=== PATIENT | female | born 1950 | race Caucasian/White ===

== ENCOUNTER 2018-10-08 19:46 | Emergency (ER) | payer OTHER, BC ==
[2018-10-08 20:44] VITALS: BP 118/79; PULSE 75; TEMP 97.4; BMI 27.4
[2018-10-08] MEDS ORDERED: METOCLOPRAMIDE HCL INJECTION 10 MG/2 ML VIAL IVPB ONE (20:59)
[2018-10-08] MEDS ORDERED: ACETAMINOPHEN 1000 MG/100 ML VIAL (NON FORMULARY) IVPB ONE (21:00)
--- NOTE | 2018-10-08 21:16 | PDOC ---
History of Present Illness - General Chief Complaint: Headache Stated Complaint: FALL Time Seen by Provider: 10/08/18 20:34 History Source: Patient Exam Limitations: No Limitations - History of Present Illness Initial Comments: 68 yo F hx of chronic pain syndrome, cervical radiculopathy, hypothyroidism, peripheral neuropathy, HTN, chronic back pain, endometrial CA 2008 (in remission ), Meniere's disease presents s/p fall 2 days ago. Mentions she has fallen in past due to Meniere's disease and 2 days ago, fell while going to bathroom. Mentions feeling vertigo and a bit lightheaded, then falling, hitting forward, hitting the left side of her head. Mentions noted some blurred vision and slightly slurred speech since fall. Is c/o headache, B/L shoulder and neck pain. Patient is disabled at baseline and walks with cane; mentions has "bad knees". Denies fever, sob, cp, abd pain, n/v, bowel/bladder incontinence. 10/08/18 21:13 Past History - Past Medical History Allergies/Adverse Reactions: Allergies Allergy/AdvReac Type Severity Reaction Status Date / Time morphine Allergy Intermediate Itching Verified 10/08/18 23:48 - Suicide/Smoking/Psychosocial Hx Smoking History: Never smoked Have you smoked in the past 12 months: No Information on smoking cessation initiated: No Hx Alcohol Use: No Drug/Substance Use Hx: No Review of Systems - Review of Systems Comments:: see hpi 10/08/18 21:20 *Physical Exam - Vital Signs Last Vital Signs Temp Pulse Resp BP Pulse Ox 97.4 F L 75 19 118/79 97 10/08/18 19:50 10/08/18 19:50 10/08/18 19:50 10/08/18 19:50 10/08/18 19:50 - Physical Exam General Appearance: No: Apparent Distress HEENT: positive: CARLOS A Neck: positive: Tender, Supple, Tender midline. negative: Rigid, Rigidity, Tender lateral Respiratory/Chest: positive: Lungs Clear, Normal Breath Sounds. negative: Respiratory Distress Cardiovascular: positive: Regular Rhythm, Regular Rate, S1, S2. negative: Murmur Gastrointestinal/Abdominal: positive: Normal Bowel Sounds, Soft. negative: Tender, Distended, Guarding, Rebound Extremity: positive: Normal Inspection. 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 negative: Facial Droop, Numbness, Sensory Deficit, Confused, Disoriented Moderate Sedation - Procedure Monitoring Vital Signs: Procedure Monitoring Vital Signs Temperature 97.4 F L 10/08/18 19:50 Pulse Rate 75 10/08/18 19:50 Respiratory Rate 19 10/08/18 19:50 Blood Pressure 118/79 10/08/18 19:50 O2 Sat by Pulse Oximetry (%) 97 10/08/18 19:50 ED Treatment Course - LABORATORY CBC & Chemistry Diagram: 10/08/18 22:08 10/08/18 22:08 - RADIOLOGY Radiology Studies Ordered: Category Date Time Status CERVICAL SPINE CT W/O CONTR [CT] Stat CT Scan 10/08/18 21:[address] WITHOUT CONTRAST [CT] Stat CT Scan 10/08/18 20:58 Ordered Medical Decision Making - Medical Decision Making 68 yo F hx of chronic pain syndrome, cervical radiculopathy, hypothyroidism, peripheral neuropathy, HTN, chronic back pain, endometrial CA 2007 (in remission ), Meniere's disease presents s/p fall 2 days ago, possibly related to her Meniere's disease. Patient is not on any blood thinners. Consider ACS, infection (given age), metabolic abnormality. Plan: CBC, CMP, trop, UA, CT head, CT c-spine, Tylenol, Reglan 10/08/18 21:22 Labs reviewed and unremarkable EKG shows NSR at 70 bpm, no ectopy, TWI lead III, nonspecific T wave flattening in lateral leads UA neg CT head and C-spine neg Patient appears well and feels better Advised to f/u with her PCP for further care 10/09/18 01:09 *DC/Admit/Observation/Transfer Diagnosis at time of Disposition: Syncope Qualifiers: Syncope type: unspecified Qualified Code(s): R55 - Syncope and collapse Fall Qualifiers: Encounter type: initial encounter Qualified Code(s): W19.XXXA - Unspecified fall, initial encounter - Discharge Dispostion Disposition: HOME Condition at time of disposition: Good Decision to Admit order: No - Referrals Referrals: Annabi,Iyad, MD [Primary Care Provider] - 3 days - Patient Instructions Printed Discharge Instructions: DI for Syncope in Adults (Fainting), DI for Meniere's Disease Additional Instructions: Thank you for choosing [facility]. It was a pleasure taking care of you. You were seen here after fall with headache. Your labs were unremarkable You had CT of head and c-spine done; there was no evidence of any bleed or fracture Please be sure to follow-up with your PCP for further care. Return to the Emergency Department if your symptoms worsen or persist, you have fever, shortness of breath, chest pain, severe abdominal pain, vomiting, dizziness, weakness of extremities (arms and/or legs), changes in vision or walking or other concerning symptoms. - Post Discharge Activity
[2018-10-08] MEDS ORDERED: ACETAMINOPHEN INJECTION 100 ML IVPB ONE (21:42)
[2018-10-08] MEDS ORDERED: METOCLOPRAMIDE HCL INJECTION 10 MG/2 ML VIAL ONE (21:42)
[2018-10-08 22:19] LABS: BASO % 0.5 % (0-2.0); EOS % 2.2 % (0-4.5); HEMATOCRIT 37.6 % (32.4-45.2); LYMPH % 22.1 % (8-40); MCH 28.6 pg (25.7-33.7); MCHC 34.7 g/dl (32.0-36.0); MEAN CELL VOLUME 82.3 fl (80-96); MEAN PLT VOLUME 7.5 fl (7.5-11.1); MONO % 6.2 % (3.8-10.2); PLATELET COUNT 279 K/MM3 (134-434); RBC 4.56 M/mm3 (3.60-5.2); RDW 12.8 % (11.6-15.6); WHITE BLOOD COUNT 8.5 K/mm3 (4.0-10.0)
[2018-10-08 22:41] LABS: ALBUMIN 3.6 g/dl (3.4-5.0); ALK PHOS 77 U/L (45-117); ANION GAP 8 MMOL/L (8-16); BILIRUBIN,TOTAL 0.3 mg/dL (0.2-1); BLOOD UREA NITROGEN 21 mg/dL (7-18); CALCIUM 8.5 mg/dL (8.5-10.1); CHLORIDE 97 mmol/L (98-107); CO2 32 mmol/L (21-32); CREATININE 1.2 mg/dL (0.55-1.3); GLUCOSE,RANDOM 146 mg/dL (74-106); POTASSIUM 3.5 mmol/L (3.5-5.1); SGOT/AST 9 U/L (15-37); SGPT/ALT 19 U/L (13-61); SODIUM 136 mmol/L (136-145); TOT PROT 7.3 g/dl (6.4-8.2)
[2018-10-09 00:56] LABS: URINE APPEARANCE CLEAR; URINE BILIRUBIN NEGATIVE (<2.0 mg/dL); URINE COLOR STRAW; URINE GLUCOSE (UA) NEGATIVE (NEGATIVE); URINE KETONE NEGATIVE (NEGATIVE); URINE LEUK ESTERASE TRACE (NEGATIVE); URINE NITRITE NEGATIVE (NEGATIVE); URINE PROTEIN NEGATIVE (NEGATIVE); URINE UROBILINOGEN NEGATIVE mg/dL (0.2-1.0)
[2018-10-09 00:58] LABS: EPI CELLS RARE /HPF (FEW); URINE BACTERIA RARE /hpf (NONE SEEN)
--- NOTE | 2018-10-09 11:58 | EKG ---
Test Reason : Blood Pressure : / mmHG Vent. Rate : 070 BPM Atrial Rate : 070 BPM P-R Int : 194 ms QRS Dur : 104 ms QT Int : 452 ms P-R-T Axes : 011 -28 -12 degrees QTc Int : 488 ms NORMAL SINUS RHYTHM INCOMPLETE RIGHT BUNDLE BRANCH BLOCK POSSIBLE ANTEROLATERAL INFARCT , AGE UNDETERMINED ABNORMAL ECG NO PREVIOUS ECGS AVAILABLE Confirmed by MATT ORTA MD ([id number]) on 10/09/2018 11:57:47 AM Referred By: Confirmed By:MATT ORTA MD
== END 2018-10-09 02:30 | disposition home or self-care (01) ==
LOC: JER 19:46
PROC: 3E033NZ Introduction of Analgesics, Hypnotics, Sedatives into Peripheral Vein, Percutaneous Approach (ICD-10-PCS; principal; 2018-10-08)
PROC: 3E033GC Introduction of Other Therapeutic Substance into Peripheral Vein, Percutaneous Approach (ICD-10-PCS; 2018-10-08)
DX: R55 Syncope and collapse (principal); S09.8XXA Other specified injuries of head, initial encounter; W18.39XA Other fall on same level, initial encounter; Y93.89 Activity, other specified; Y92.031 Bathroom in apartment as the place of occurrence of the external cause; Y99.8 Other external cause status; H81.09 Meniere's disease, unspecified ear; I10 Essential (primary) hypertension; E03.9 Hypothyroidism, unspecified; M54.12 Radiculopathy, cervical region; G89.4 Chronic pain syndrome; Z85.44 Personal history of malignant neoplasm of other female genital organs; R26.89 Other abnormalities of gait and mobility; Z99.89 Dependence on other enabling machines and devices
CPT/HCPCS: 36415; 70450-TC; 72125-TC; 80053; 81003; 81015; 84484; 85025; 93005; 93010; 99282-25; J0131